=== PATIENT | female | born 1950 ===

== ENCOUNTER 2023-09-28 09:12 | Outpatient (CLI) | payer OTHER | END 2023-09-28 09:16 | disposition home or self-care (01) | LOC: SONOGRAMA 09:12 | PROVIDERS: ATTEND Obstetrics & Gynecology Gynecology | DX: R31.9 Hematuria, unspecified (principal); N20.0 Calculus of kidney; R31.21 Asymptomatic microscopic hematuria; N60.12 Diffuse cystic mastopathy of left breast; N60.11 Diffuse cystic mastopathy of right breast; R92.1 Mammographic calcification found on diagnostic imaging of breast; M18.0 Bilateral primary osteoarthritis of first carpometacarpal joints; D25.1 Intramural leiomyoma of uterus; N84.0 Polyp of corpus uteri ==